=== PATIENT | female | born 1990 | race Caucasian/White ===

== ENCOUNTER 2023-02-27 14:37 | Emergency (ER) | payer BC, MEDICAID ==
[~2023-02-27] VITALS: Ht 165.1 cm; Wt 80.7 kg
[2023-02-27 15:01] VITALS: BP 119/71; PULSE 92; RESP 20; TEMP 100.6; O2SAT 100
[2023-02-27] MEDS ORDERED: NACL 0.9% 1,000 ML IV SCH (16:55)
[2023-02-27] MEDS ORDERED: ONDANSETRON 4 MG/2 ML VIAL IVP ONE (16:55)
[2023-02-27] MEDS ORDERED: FAMOTIDINE 20 MG/2 ML VIAL IVP ONE (16:55)
[2023-02-27 17:23] LABS: BASOPHILS % (AUTO) 0.2 % (0.0-2.0); EOSINOPHILS % (AUTO) 0.1 % (0.0-4.0); HEMATOCRIT 41.7 % (36-48); HEMOGLOBIN 14.1 g/dL (12.0-16.0); LYMPHOCYTES # (AUTO) 0.4 K/uL (2.5-16.5); LYMPHOCYTES % (AUTO) 3.9 % (20.5-51.1); MEAN CORPUSCULAR HEMOGLOBIN 32 pg (27-31); MEAN CORPUSCULAR HGB CONC 34 g/dL (33-37); MONOCYTES # (AUTO) 0.2 K/uL (0.8-1.0); MONOCYTES % (AUTO) 2.3 % (1.7-9.3); NEUTROPHILS # (AUTO) 9.7 K/uL (1.8-7.7); NEUTROPHILS % (AUTO) 93.5 % (42.2-75.2); PLATELET COUNT (AUTO) 212 K/uL (140-450); RED BLOOD CELL COUNT(AUTO) 4.39 MIL/uL (4.20-5.40); RED CELL DISTRIBUTION WIDTH 13.5 % (11.6-13.7); WHITE BLOOD COUNT (AUTO) 10.4 K/uL (4.8-10.8)
[2023-02-27] MEDS ORDERED: ACETAMINOPHEN 325 MG TAB PO ONE (17:35)
[2023-02-27 17:43] LABS: ALBUMIN 3.8 g/dL (3.4-5.0); ANION GAP 14.2 (8-16); CALCIUM 7.9 mg/dL (8.5-10.1); CARBON DIOXIDE 27.5 mmol/L (21-32); CREATININE 0.8 mg/dL (0.6-1.3); POTASSIUM 3.7 mmol/L (3.5-5.1); TOTAL BILIRUBIN 0.4 mg/dL (0.0-1.0); TOTAL PROTEIN, SERUM 7.7 g/dL (6.4-8.2)
[2023-02-27 17:58] LABS: APPEARANCE,URINE CLEAR (CLEAR); BILIRUBIN,URINE NEGATIVE (NEGATIVE); BLOOD, URINE 3+ (NEGATIVE); COLOR,URINE YELLOW (YELLOW); LEUKOCYTE ESTERASE ,URINE TRACE (NEGATIVE); NITRITE, URINE NEGATIVE (NEGATIVE); PH,URINE 8.5 (5.0-9.0); PROTEIN,URINE TRACE (NEGATIVE); UGLUCOSE NEGATIVE (NEGATIVE); UROBILINOGEN,URINE 0.2 EU/dL (0.2 - 1)
[2023-02-27 18:12] LABS: BACTERIA,URINE FEW /HPF (None Seen); SQUAMOUS EPITHELIAL CELL,UR 4-10 (MOD) /LPF (0-3 (FEW)); WBC,URINE 0-5 /HPF (0-5)
[2023-02-27 18:26] LABS: FLU A ANTIGEN negative (NEGATIVE); FLU B ANTIGEN NEGATIVE (NEGATIVE)
[2023-02-27] MEDS ORDERED: ACETAMINOPHEN 325 MG TAB ONE (18:59)
[2023-02-27] MEDS ORDERED: ONDA-188 SL (21:54)
[2023-02-27] MEDS ORDERED: CEPH-588 PO (21:54)
[2023-02-27] MEDS ORDERED: FAMO-90 PO (21:54)
[2023-02-27 22:45] VITALS: BP 104/59; PULSE 91; RESP 20; O2SAT 97
== END 2023-02-27 22:45 | disposition home or self-care (01) ==
LOC: MED 14:37
DX: R11.2 Nausea with vomiting, unspecified (principal); R50.9 Fever, unspecified; R10.9 Unspecified abdominal pain; N30.01 Acute cystitis with hematuria; Z20.822 Contact with and (suspected) exposure to COVID-19; Z79.899 Other long term (current) drug therapy; Z79.2 Long term (current) use of antibiotics
CPT/HCPCS: 36415; 74177; 80053; 81001; 81025; 83690; 85025; 87426; 87804; 96361; 96374; 96375; 99285; J2405; J3490; J7030; Q9967